=== PATIENT | female | born 1980 | race Caucasian/White ===

== ENCOUNTER 2022-11-02 07:31 | Outpatient (RCR) | payer OTHER, SELFPAY ==
[2022-08-22 09:44] LABS: Basophils Absolute Auto 0.05 K/uL (0.00-0.30); Basophils Percent Auto 0.7 % (0.0-3.0); Eosinophils Absolute Auto 0.12 K/uL (0.00-0.50); Eosinophils Percent Auto 1.7 % (0.0-7.0); Hematocrit 38.2 % (33.0-51.0); Immature Granulocytes Abs Auto 0.02 K/uL (0.00-0.30); Lymphocytes Absolute Auto 2.65 K/uL (0.90-2.90); Lymphocytes Percent Auto 36.7 % (20-44); Mean Corpuscular HGB Conc 34 gm/dL (32-36); Mean Corpuscular Hemoglobin 30 pg (26-34); Mean Corpuscular Volume 88 fL (80-100); Monocytes Percent Auto 6.8 % (0.0-11.0); Neutrophils Absolute Auto 3.89 K/uL (1.7-7.0); Neutrophils Percent Auto 53.8 % (42.0-72.0); Platelet Count* 262 K/uL (140-440); RDW Coefficient of Variation % 11.9 % (11.5-15.5); Red Blood Count 4.36 m/uL (4.00-5.20); White Blood Count* 7.22 K/uL (4.50-11.00)
[2022-08-22 09:54] LABS: Slide Review Reflex No
[2022-08-22 10:18] LABS: Chloride* 104 mmol/L (96-114)
[2022-08-22 10:19] LABS: Potassium* 3.9 mmol/L (3.6-5.1); Sodium* 139 mmol/L (135-149)
[2022-08-22 10:21] LABS: Alanine Aminotransferase* 15 U/L (4-35); Alkaline Phosphatase* 66 U/L (40-150); Aspartate Amino Transferase* 21 U/L (12-35); Bilirubin Total* 0.4 mg/dL (0.1-1.5); Blood Urea Nitrogen* 12 mg/dL (5-24); Calcium* 9.3 mg/dL (8.4-10.6); Carbon Dioxide* 26 mmol/L (20-32); Creatinine* 0.8 mg/dL (0.5-1.5); Estimated Glomerular Filt Rate 95 ml/min; Glucose* 94 mg/dL (60-115); Lactate Dehydrogenase* 375 U/L (313-618); Total Protein* 7.9 g/dL (6.0-8.3)
[2022-08-22 11:13] LABS: Hepatitis C Virus Antibody* Negative (Negative)
[2022-08-23 11:59] LABS: Hepatitis B Core Antibody, IgM Negative (Negative)
[2022-08-23 12:02] LABS: Hepatitis B Core Antibodies Negative (Negative)
[2022-08-23 15:48] LABS: Hepa B Virus Surf Ag Conf Non Confirmed (Non Confirmed)
== END 2023-02-18 23:59 | disposition home or self-care (01) ==
LOC: CCIC 07:31
PROVIDERS: PCP Nurse Practitioner Family; Referring Provider Nurse Practitioner Family; Visit Provider Clinical Nurse Specialist
DX: C82.90 Follicular lymphoma, unspecified, unspecified site (principal)
CPT/HCPCS: 36415; 80053; 83615; 85025; 86704; 86705; 86803; 87341; 99202; 99203